=== PATIENT | male | born 1990 | race Caucasian/White ===

== ENCOUNTER 2022-12-27 14:09 | Emergency (ER) | payer MEDICAID ==
[2022-12-27] MEDS ORDERED: Ibuprofen 600 MG Tab PO ONE (17:07)
== END 2022-12-27 17:23 | disposition home or self-care (01) ==
LOC: MW.ED 14:09
DX: M25.561 Pain in right knee (principal); G89.29 Other chronic pain
CPT/HCPCS: 73562; 99283; A9270